=== PATIENT | female | born 1970 | race Caucasian/White ===

== ENCOUNTER → 2018-10-09 | Day surgery (SDC) | payer BC ==
[~2018-10-09] MED LIST: AMPICILLIN-SULBACTAM 3 GM in SODIUM CHLORIDE 0.9% 100 ML IVPB STA; DEXAMETHASONE SOD PHOSPHATE 10 MG/ML 1 ML VIAL IV ONE; FAMOTIDINE 20 MG/2 ML VIAL IVP ONE; LACTATED RINGERS 1,000 ML IV ONE; LIDOCAINE 1% (PF) 10 MG/ML (30 ML SDV) SQ ONE; MIDAZOLAM 2 MG/2 ML VIAL IVP ONE; MIDAZOLAM 2 MG/2 ML VIAL ONE; ONDANSETRON 4 MG/2 ML VIAL IVP ONE; PHENYLEPHRINE-0.9% NACL SYG 1 MG/10 ML SYRINGE ONE; PROPOFOL 10 MG/ML 20 ML VIAL IV ONE; ROPIVACAINE 5 MG/ML 30 ML VIAL ONE; fentaNYL (PF) 50 MCG/ML 2 ML AMP ONE
[2018-10-09 14:31] VITALS: TEMP 98.3
[2018-10-09 14:32] LABS: Glucose,Whole Blood 102 mg/dL (75-99)
[2018-10-09 18:22] VITALS: RESP 16
[2018-10-09 18:39] VITALS: BP 122/62; PULSE 71
--- NOTE | 2018-10-09 18:51 | XR ---
EXAMINATION TYPE: XR finger RT DATE OF EXAM: 10/09/2018 COMPARISON: NONE HISTORY: Intraoperative image TECHNIQUE: 2 view submitted FINDINGS: Limited intraoperative image demonstrates markedly limited resolution is nondiagnostic. IMPRESSION: Intraoperative image
--- NOTE | 2018-10-10 13:34 | P.OP ---
Date of Procedure: 10/09/18 Preoperative Diagnosis: 1. Iguana bite - right thumb with retained foreign body 2. Possible traumatic athrotomy - right thumb interphalangeal joint Postoperative Diagnosis: 1. Iguana bite - right thumb with retained foreign body 2. Traumatic arthrotomy - right thumb interphalangeal joint 3. Traumatic laceration - ulnar collateral ligament of right thumb interphalangeal joint Procedure(s) Performed: 1. Exploration of right thumb with removal of foreign body 2. Irrigation and debridement of traumatic arthrotomy of the right thumb interphalangeal joint 3. Repair of traumatic laceration - ulnar collateral ligament of right thumb interphalangeal joint Anesthesia: MAC, regional, local Surgeon: Barber Meyer Estimated Blood Loss (ml): 3 Pathology: other (areobic & anaerobic cultures) Condition: stable Disposition: PACU Indications for Procedure: The patient is a 48-year-old [id number] female who sustained an animal bite to her right thumb from her 4-/2 foot long pet jesenia. She was initially seen in an emergency department and was referred to [facility] for further evaulation and treatment. X-rays taken in the office revealed a potential retained foreign body, suspected to be a broken tooth. Based on its location and her exam, there was concern for a traumatic arthrotomy and potential for septic arthritis. Treatment options (and associated risks and benefits) were discussed and surgical exploration was recommended. The patient agreed and wished to proceed with surgery. In preop, the patient denied any additional questions or concerns. Consent forms were signed. The operative site was confirmed and marked. Description of Procedure: The patient was positioned supine with the operative limb on an arm board. Monitored anesthesia was administered uneventfully. A time-out was performed, confirming the patient, the operative side, site and the procedure to be performed: all team members expressed agreement. Using aseptic technique, local anesthetic was injected for a digital block of the thumb, both for intra-and pos toperative pain control. IV antibiotics were held in anticipation of obtaining intraoperative cultures. The right upper extremity was then prepped and draped in standard, sterile fashion. An Esmarch was used to exsanguinate the hand (but not the thumb). This was clamped at the wrist and used as a tourniquet. Loupe magnification was used throughout the case for optimum visualization. The healing traumatic wound on the radial side of the thumb distal phalanx was sharply incised and extended distally along the midaxial line and transversely across the dorsal aspect of the DIP joint. Full-thickness skin flaps were elevated. The neurovascular bundle was identified and protected throughout the case. No discrete neurovascular injury was identified but there was moderate adjacent inflammatory & fibrous tissue distally. The majority of the superior aspect of the ulnar collateral ligament was traumatically lacerated. There is no gross instability of the joint. Some back bleeding was noted through the wrist tourniquet and a small strip of the Esmarch was cut and applied as an additional digital tourniquet. The wound was explored and a fractured tooth was identified and removed from the subcutaneous tissues, superficial to DIP joint capsule. The capsule origin at the head of the proximal phalanx was patulous and thickened. There was no obvious traumatic arthrotomy; however, based on the thickened, inflamed appearance of the capsular tissue and the presence of the adjacent broken tooth, the joint capsule was likely violated at the time of the initial injury. The decision was made to proceed with formal irrigation and debridement of the joint. The extensor tendon was carefully elevated. There was traumatic disruption of small portion of the tendon fibers on the ipsilateral corner of the joint. This comprised less than 20% of the tendon width and no further repair was deemed necessary. The damaged tissue was carefully debrided with a rongeur. The ulnar joint capsule was sharply incised. There were no visible fractures or apparent articular damage. There was no gross purulence or intra-articular foreign matter. A culture swab from the joint was obtained. IV antibiotics were then administered. The ulnar joint and capsular tissues were sharply and mechanical debrided with a scalpel and rongeur. The joint was copiously irrigated with 200 ml of normal saline using a syringe and angiocatheter. Orthogonal intraoperative fluoroscopy images were obtained to confirm no residual radiopaque foreign bodies. The capsulotomy was left open to allow for drainage. The lacerated collateral ligament was repaired back to its origin with interrupted 3-0 PDS sutures. The tourniquets were released. No arterial bleeding was present but appropriate venous bleeding was seen in the surrounding tissues. The wound was irrigated again. The incision was loosely reapproximated with interrupted 5-0 nylon sutures. A soft, sterile dressing of adaptec, 4X4's alejandro and coban was applied. All sponge, needle and instrument counts were correct at the end of the case. The patient tolerated the procedure well and was transferred to recovery in stable condition.
--- NOTE | 2018-10-10 18:59 | P.ONQ ---
Anesthesiology Proc Note - PNB - Peripheral Nerve Block Performed Right Infraclavicular Single Time Out Performed: Yes Procedure Start Time: 15:02 Procedure Stop Time: 15:09 Indication: Acute Post-Operative Pain, Requested by physician Sedation Type: Sedate with meaningful contact maintained Preparation: Sterile Dressing Position: Supine Needle Size: 50mm (2") Needle Gauge: 21 Technique: Ultrasound Injectate: 0.5% Ropivacaine (see comment for volume) (ropi .5% 30cc) Blood Aspirated: No Pain Paresthesia on Injection Noted: No Events: Uneventful and Well Tolerated
--- NOTE | 2018-10-12 07:27 | FL ---
EXAMINATION TYPE: FL guidance operating room DATE OF EXAM: 10/09/2018 CLINICAL HISTORY: Right thumb injury. TECHNIQUE: Fluoroscopy. COMPARISON: None. FINDINGS: Fluoroscopic guidance was provided during right thumb exploration procedure performed by Dalton Meyer. A total of 10 seconds of fluoroscopic time was utilized during the procedure and 2 sp ot images are acquired. Please refer to procedure note for further details. IMPRESSION: As Above.
== END | disposition home or self-care (01) ==
LOC: OR 13:49
PROVIDERS: ATTEND Orthopaedic Surgery
DX: S61.021A Laceration with foreign body of right thumb without damage to nail, initial encounter (principal); W59.01XA Bitten by nonvenomous lizards, initial encounter; F17.210 Nicotine dependence, cigarettes, uncomplicated; G89.29 Other chronic pain; M54.9 Dorsalgia, unspecified; E11.9 Type 2 diabetes mellitus without complications; Z79.84 Long term (current) use of oral hypoglycemic drugs; F32.9 Major depressive disorder, single episode, unspecified; Z79.899 Other long term (current) drug therapy
CPT/HCPCS: 64415; 87070; 87205; 87075; 73140; 26540; 26080; J2250; J1100; J2405; J2001; J3010; J0295; J2795; J2370; J2704